=== PATIENT | male | born 2000 | race Two or more races ===

== ENCOUNTER → 2020-05-05 13:11 | Outpatient (CLI) | payer OTHER, SELFPAY ==
[2020-05-05 13:48] LABS: International Normalized Ratio 1.1; Prothrombin Time (Protime)PT. 13.2 SECONDS (11.7-14.9)
[2020-05-05 13:49] LABS: Partial Thromboplast Time 32.1 Seconds (24.1-36.2)
== END ==
PROVIDERS: Referring Provider Nurse Practitioner Family; Visit Provider Nurse Practitioner Family
DX: K62.5 Hemorrhage of anus and rectum (principal); R19.7 Diarrhea, unspecified
CPT/HCPCS: 85610; 85730